=== PATIENT | male | born 1975 | race Caucasian/White ===

== ENCOUNTER 2023-07-03 00:22 | Emergency (ER) | payer BC ==
[2023-07-03] MEDS ORDERED: Sodium Chloride 0.9% 10 ML Syringe FLUSH PRN (00:49)
[2023-07-03] MEDS: Ketorolac 15 MG/ML SDV IVPUSH ONE (00:54)
[2023-07-03] MEDS: Ondansetron 4 MG/2 ML SDV IVPUSH ONE (00:54)
[2023-07-03] MEDS: diphenhydrAMINE 50 MG/ML SDV IVPUSH ONE (00:54)
[2023-07-03] MEDS: Sodium Chloride 0.9% 1,000 ML IV ONE (00:58)
[2023-07-03] MEDS: Take Home: Promethazine 25 MG, 4 Tab Pack PO ONE (01:56)
== END 2023-07-03 03:05 | disposition home or self-care (01) ==
LOC: LL.ED 00:22
DX: G43.909 Migraine, unspecified, not intractable, without status migrainosus (principal); I10 Essential (primary) hypertension; E78.00 Pure hypercholesterolemia, unspecified; J45.909 Unspecified asthma, uncomplicated; Z79.899 Other long term (current) drug therapy
CPT/HCPCS: 96374; 96375; 99283-25; A9270-GY; J1200; J1885; J2405; J7030